=== PATIENT | male | born 1960 | race Caucasian/White ===

== ENCOUNTER 2017-02-20 06:36 | Day surgery (SDC) | payer BC, OTHER ==
[2017-02-17 13:38] VITALS: BMI 33.3
[~2017-02-20 06:36] MED LIST: DEXAMETHASONE SOD PHOSPHATE 10 MG/ML 1 ML VIAL IV ONE; HEPARIN SODIUM,PORCINE 5,000 UNIT/ML 1 ML VIAL SQ ONE; LACTATED RINGERS 1,000 ML IV SCH; MIDAZOLAM 2 MG/2 ML VIAL IV PRN; ONDANSETRON 4 MG/2 ML VIAL IVP ONE; SCOPOLAMINE 1.5MG/72HR PATCH TRANSDERM ONE; ceFAZolin 2 GM in SODIUM CHLORIDE 0.9% 100 ML IVPB ONE
[2017-02-20] MEDS ORDERED: MIDAZOLAM 2 MG/2 ML VIAL IVP ONE (07:25)
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
[2017-02-20] MEDS ORDERED: ePHEDrine 50 MG/ML 1 ML AMP ONE (08:02)
[2017-02-20] MEDS ORDERED: LIDOCAINE 1% INJ 10MG/ML (20 ML MDV) ONE (08:02)
[2017-02-20] MEDS ORDERED: PROPOFOL 10 MG/ML 20 ML VIAL IV ONE (08:02)
[2017-02-20] MEDS ORDERED: NEOSTIGMINE 1 MG/ML 10 ML VIAL ONE (08:02)
[2017-02-20] MEDS ORDERED: GLYCOPYRROLATE 0.2 MG/ML 2 ML VIAL ONE (08:02)
[2017-02-20] MEDS ORDERED: fentaNYL (PF) 50 MCG/ML 2 ML AMP ONE (08:02)
[2017-02-20] MEDS ORDERED: SUCCINYLCHOLINE CHLORIDE 100 MG/5 ML SYR IV ONE (08:02)
[2017-02-20] MEDS ORDERED: MIDAZOLAM 2 MG/2 ML VIAL ONE (08:02)
[2017-02-20] MEDS ORDERED: ROCURONIUM BROMIDE 10 MG/ML 10 ML VIAL IV ONE (08:02)
[2017-02-20] MEDS ORDERED: BUPIVACAINE (PF) 0.25% 30 ML VIAL SQ ONE ×2 (08:26→09:05)
[2017-02-20] MEDS ORDERED: LACTATED RINGERS 1,000 ML IV ONE ×3 (08:48→11:17)
[2017-02-20] MEDS ORDERED: NALOXONE 0.4 MG/ML 1 ML VIAL IV PRN (09:21)
[2017-02-20] MEDS ORDERED: HYDROcodone/APAP 5-325MG 1 EACH TAB PO PRN (09:21)
--- NOTE | 2017-02-20 09:28 | P.PCN ---
Date of Procedure: 02/20/17 Preoperative Diagnosis: Postoperative Diagnosis: Procedure(s) Performed: PREOPERATIVE DIAGNOSIS: Recurrent left inguinal hernia POSTOPERATIVE DIAGNOSIS: Same PROCEDURE: Repair recurrent left inguinal hernia with mesh plug SURGEON: Natalio EBL: Minimal ANESTHESIA: General COMPLICATIONS: None OPERATIVE PROCEDURE: The patient is brought and placed on the operating table in the supine position. The patient was placed under general anesthesia at that time. The patient's previous incision was re-incised using a scalpel. The subcutaneous tissues were dissected using electro cautery. The external oblique was partially incised with a scalpel. The hernia defect itself was quite visible medially. This appeared to be a recurrent direct hernia. There was a fairly impressive degree of scar tissue from the prior mesh placement. I could visualize the spermatic cord structures but these were not encircled. No visible indirect hernia was seen. The direct space was entered. The contents were reduced back into the preperitoneal space and dissected using blunt dissection and cautery. There was no visible colon present. A large Bard mesh hernia plug was utilized. This was placed into the defect and sutured to the surrounding structures using interrupted 2-0 Nurolon sutures. The attenuated transversalis fascia was then reapproximated using a short running 2-0 Nurolon stitch. The subcutaneous tissues were reapproximated using interrupted 3-0 Vicryl sutures and the skin using a running 4-0 Monocryl stitch. Steri-Strips and sterile dressings then applied. At the end of the procedure the sponge needle and counts were all correct. DISPOSITION: Stable to recovery room Implants: Indications for Procedure: Operative Findings: Description of Procedure:
[2017-02-20 09:35] VITALS: TEMP 97
[2017-02-20] MEDS: HYDROmorphone 1 MG/ML 1 ML SYRINGE IVP PRN ×4 (09:38→10:15)
[2017-02-20 09:40] VITALS: RESP 16
[2017-02-20] MEDS ORDERED: KETOROLAC 30 MG/ML 1 ML VIAL IVP ONE (09:56)
[2017-02-20] MEDS ORDERED: HYDROcodone/APAP 5-325MG 1 EACH TAB PO ONE (10:49)
[2017-02-20 11:07] VITALS: BP 123/74; PULSE 70
== END 2017-02-20 12:45 | disposition home or self-care (01) ==
LOC: OR 06:36
PROVIDERS: ATTEND Surgery
DX: K40.91 Unilateral inguinal hernia, without obstruction or gangrene, recurrent (principal); K21.9 Gastro-esophageal reflux disease without esophagitis; M19.90 Unspecified osteoarthritis, unspecified site; G89.29 Other chronic pain; M54.9 Dorsalgia, unspecified; E66.9 Obesity, unspecified; Z68.33 Body mass index [BMI] 33.0-33.9, adult; Z79.891 Long term (current) use of opiate analgesic
CPT/HCPCS: 49505; 88302; C1781; J2250; J1644; J1100; J2710; J0690; J2405; J2001; J3010; J1885; J1170; J0330; J2704

== ENCOUNTER → 2017-05-30 | Outpatient (CLI) | payer BC ==
[2017-05-30 11:02] LABS: Basophils # (A) 0.1 k/uL (0-0.2); Basophils % (A) 1 %; CH 28.2; CHCM 31.5; Eosinophils # (A) 0.3 k/uL (0-0.7); Eosinophils % (A) 3 %; HCT 50.6 % (39.0-53.0); HDW 2.43; HGB 16.1 gm/dL (13.0-17.5); Luc # (Auto) 0.19; Luc % (Auto) 2; Lymphocytes # (A) 1.8 k/uL (1.0-4.8); Lymphocytes % (A) 19 %; MCH 28.8 pg (25.0-35.0); MCHC 31.9 g/dL (31.0-37.0); Mean Platelet Volume 9.1; Monocytes # (A) 0.5 k/uL (0-1.0); Monocytes % (A) 6 %; Neutrophils # (A) 6.5 k/uL (1.3-7.7); Neutrophils % (A) 70 %; RBC 5.62 m/uL (4.30-5.90); RDW 14.6 % (11.5-15.5); WBC 9.3 k/uL (3.8-10.6); WBC (Perox) 8.85
[2017-05-30 11:14] LABS: ALT 37 U/L (21-72); AST 21 U/L (17-59); Alkaline Phosphatase 82 U/L (38-126); Anion Gap 9 mmol/L; Blood Urea Nitrogen 15 mg/dL (9-20); Calcium 9.3 mg/dL (8.4-10.2); Carbon Dioxide 27 mmol/L (22-30); Chloride 106 mmol/L (98-107); Cholesterol 233 mg/dL (<200); Glucose 90 mg/dL (74-99); HDL Cholesterol 41 mg/dL (40-60); Non-African American GFR(MDRD) >60 (>60 ml/min/1.73 sqM); Potassium 5.1 mmol/L (3.5-5.1); Sodium 142 mmol/L (137-145); Total Bilirubin 0.4 mg/dL (0.2-1.3); Total Protein 6.8 g/dL (6.3-8.2)
[2017-05-30 12:28] LABS: Prostate Specific Antigen 0.39 ng/mL (0.00-4.00)
== END | disposition home or self-care (01) ==
LOC: LABWHC1 10:26
PROVIDERS: ATTEND Family Medicine
DX: Z00.00 Encounter for general adult medical examination without abnormal findings (principal); Z11.59 Encounter for screening for other viral diseases; Z12.5 Encounter for screening for malignant neoplasm of prostate
CPT/HCPCS: 36415; 80053; 80061; 80074; 84153; 84443; 85025